=== PATIENT | male | born 1960 ===

== ENCOUNTER 2025-02-24 12:54 | Inpatient (IN) | payer MEDICARE ==
[~2025-02-24] VITALS: Ht 172.7 cm; Wt 57.9 kg
[2025-02-24 11:45] VITALS: BP 89/47
[~2025-02-24 12:54] MED LIST: AFRIN 15 ML15 M1 NAS; ASPIRIN ADULT L81 M2 PO; BROVANA15 MCG/2 M INH; HUMALOG100 UNIT/1 SQ; LANTUS100 UNIT/1 SC; LIPITOR40 MG PO; LISINOPRIL2.5 MG PO; MEMANTINE HCL10 MG PO; MULTI-VITAMIN1 EACH PO; PEPCID20 MG PO; PLAVIX75 M1 PO; RIVASTIGMINE1 EAC2 T; SINGULAIR10 M1 PO; TOPROL XL25 MG PO
[2025-02-24] MEDS ORDERED: ACETAMINOPHEN 325 MG TAB PO PRN (13:10)
[2025-02-24] MEDS ORDERED: ACETAMINOPHEN 650 MG SUPP R PRN (13:10)
[2025-02-24] MEDS ORDERED: Acetaminophen/Hydrocodone 5 MG/325 MG TABLET PO PRN (13:10)
[2025-02-24] MEDS ORDERED: Ondansetron Hydrochloride 4 MG/2 ML VIAL IV PRN (13:10)
[2025-02-24] MEDS ORDERED: SODIUM CHLORIDE 0.9% 1,000 ML IV ONE (13:15)
[2025-02-24 14:06] LABS: BASO % 0.3 % (0.0-1.0); EOS # 0.1 10*3/uL (0.0-0.4); EOS % 1.1 % (1.0-4.0); HEMATOCRIT 40.4 % (42.0-52.0); MEAN CELL VOLUME 91.8 fl (80.0-94.0); MEAN CORPUSCULAR HGB 30.7 pg (27.0-31.0); MEAN CORPUSCULAR HGB CONC 33.4 g/dl (33.0-37.0); MEAN PLATELET VOLUME 9.5 fl (9.6-12.3); MONO # 1.3 10*3/uL (0.1-1.0); MONO % 10.4 % (3.0-9.0); NEUT # 9.2 10*3/uL (2.3-7.9); NEUT % 75.2 % (47.0-73.0); PLATELET COUNT AUTOMATED 155 10*3/uL (130-400); RED CELL DISTRI WIDTH 13.6 % (0-14.5); WHITE BLOOD COUNT 12.3 10*3/uL (4.8-10.8)
[2025-02-24] MEDS ORDERED: Albuterol Sulfate 2.5 MG/3 ML VIAL NEB SCH (14:45)
[2025-02-24 16:00] VITALS: BP 98/56
[2025-02-24] MEDS ORDERED: Ziprasidone Hydrochloride 40 MG CAP PO SCH (17:00)
[2025-02-24] MEDS ORDERED: DEXTROSE 50% 25 GM/50 ML VIAL IV PRN (18:35)
[2025-02-24 20:00] VITALS: BP 119/41
[2025-02-24] MEDS ORDERED: Insulin Glargine, Recombinan 1 UNIT/0.01 ML SC SCH (21:00)
[2025-02-24] MEDS ORDERED: Montelukast Sodium 10 MG TAB PO SCH (21:00)
[2025-02-24] MEDS ORDERED: ATORVASTATIN CALCIUM 40 MG TABLET PO SCH (21:00)
[2025-02-24] MEDS ORDERED: Memantine Hydrochloride 10 MG TAB PO SCH (21:00)
[2025-02-24] MEDS ORDERED: FORMOTEROL FUMARATE 20 MCG/2 ML SCH (21:00)
[2025-02-24] MEDS ORDERED: INSULIN LISPRO 1 UNIT/0.01 ML SQ SCH (22:00)
[2025-02-24] MEDS ORDERED: DIVALPROEX SODIUM 125 MG CAP PO SCH (22:00)
[2025-02-24] MEDS ORDERED: LITHIUM CARBONATE 150 MG CAPSULE PO SCH (22:00)
[2025-02-24] MEDS ORDERED: Haloperidol Lactate 5 MG/ML AMP IM ONE (23:30)
[2025-02-25] MEDS ORDERED: Haloperidol Lactate 5 MG/ML AMP ONE (00:01)
[2025-02-25 04:00] VITALS: BP 98/44
[2025-02-25 04:24] LABS: BASO % 0.4 % (0.0-1.0); EOS # 0.1 10*3/uL (0.0-0.4); EOS % 1.4 % (1.0-4.0); HEMATOCRIT 39.7 % (42.0-52.0); MEAN CELL VOLUME 91.3 fl (80.0-94.0); MEAN CORPUSCULAR HGB 30.3 pg (27.0-31.0); MEAN CORPUSCULAR HGB CONC 33.2 g/dl (33.0-37.0); MEAN PLATELET VOLUME 8.8 fl (9.6-12.3); MONO % 10.3 % (3.0-9.0); NEUT % 72.7 % (47.0-73.0); PLATELET COUNT AUTOMATED 144 10*3/uL (130-400); RED BLOOD COUNT 4.35 10*6/uL (4.50-5.90); RED CELL DISTRI WIDTH 13.3 % (0-14.5); WHITE BLOOD COUNT 9.6 10*3/uL (4.8-10.8)
[2025-02-25 04:58] LABS: ALKALINE PHOSPHATASE 78 U/L (46-116); BUN 37 mg/dl (9-23); CHLORIDE 107 mmol/L (98-107); POTASSIUM 3.8 mmol/L (3.4-5.1); SGPT/ALT 18 U/L (5-49); TOTAL PROTEIN 6.8 gm/dL (6.0-8.0)
[2025-02-25 08:00] VITALS: BP 95/50
[2025-02-25 08:29] LABS: BILIRUBIN Negative (Negative); BLOOD Negative (Negative); CLARITY Cloudy (Clear); COLOR Yellow (Yellow); GLUCOSE Negative (Negative); KETONE 1+ (Negative); LEUKO ESTERASE Negative (Negative); NITRITE Negative (Negative); PH 6.5 (4.5-8.0); SPECIFIC GRAVITY 1.025 (1.001-1.030)
[2025-02-25] MEDS ORDERED: ASPIRIN ENTERIC COATED 81 MG TAB PO SCH (09:00)
[2025-02-25] MEDS ORDERED: Clopidogrel Hydrogen Sulfate 75 MG TAB PO SCH (09:00)
[2025-02-25] MEDS ORDERED: RIVASTIGMINE 13.3 MG/24 HR TDM T SCH (09:00)
[2025-02-25 09:22] LABS: BACTERIA TRACE; HYALINE CAST 0-2; MUCOUS 1+; RBC 0-2 rbc/hpf (0-2); WBC 0-2 wbc/hpf (0-5)
[2025-02-25] MEDS ORDERED: FAMOTIDINE 20 MG TAB PO SCH (10:00)
[2025-02-25] MEDS ORDERED: Enoxaparin Sodium 40 MG/0.4 ML SYR SC SCH (10:00)
[2025-02-25] MEDS ORDERED: SODIUM CHLORIDE 0.9% 1,000 ML IV ONE (10:55)
[2025-02-25 12:00] VITALS: BP 98/54
[2025-02-25 16:00] VITALS: BP 99/52
[2025-02-25] MEDS ORDERED: hydrOXYzine pamoate 25 MG CAP PO ONE (17:50)
[2025-02-25] MEDS ORDERED: diphenhydrAMINE hydrochloride 50 MG/ML VIAL IV ONE (18:00)
[2025-02-25] MEDS ORDERED: diphenhydrAMINE hydrochloride 50 MG/ML VIAL ONE (18:22)
[2025-02-25 20:00] VITALS: BP 111/56
[2025-02-26] VITALS: BP 116/72
[2025-02-26 05:35] LABS: BUN 20 mg/dl (9-23); CHLORIDE 106 mmol/L (98-107); POTASSIUM 3.8 mmol/L (3.4-5.1)
[2025-02-26 06:09] LABS: BASO # 0.1 10*3/uL (0.0-0.1); BASO % 0.6 % (0.0-1.0); EOS # 0.2 10*3/uL (0.0-0.4); EOS % 1.9 % (1.0-4.0); MEAN CELL VOLUME 90.7 fl (80.0-94.0); MEAN CORPUSCULAR HGB 30.5 pg (27.0-31.0); MEAN CORPUSCULAR HGB CONC 33.7 g/dl (33.0-37.0); MONO # 0.9 10*3/uL (0.1-1.0); MONO % 10.8 % (3.0-9.0); NEUT # 5.7 10*3/uL (2.3-7.9); NEUT % 66.5 % (47.0-73.0); PLATELET COUNT AUTOMATED 147 10*3/uL (130-400); RED BLOOD COUNT 4.19 10*6/uL (4.50-5.90); RED CELL DISTRI WIDTH 13.5 % (0-14.5); WHITE BLOOD COUNT 8.6 10*3/uL (4.8-10.8)
[2025-02-26] MEDS ORDERED: Albuterol Sulfate 2.5 MG/3 ML VIAL NEB PRN (07:40)
[2025-02-26 08:00] VITALS: BP 113/62
[2025-02-26] MEDS ORDERED: LITHIUM CARBON150 MG PO (12:28)
[2025-02-26] MEDS ORDERED: DIVALPROEX SOD125 M1 PO (12:28)
[2025-02-26] MEDS ORDERED: ZIPRASIDONE HCL40 MG PO (12:28)
[2025-02-26 16:00] VITALS: BP 101/45
== END 2025-02-26 21:00 | DRG 640 ==
LOC: ICCU 12:54
PROVIDERS: ADMIT Internal Medicine; ATTEND Internal Medicine
DX: E86.0 Dehydration (principal); G93.41 Metabolic encephalopathy; N17.0 Acute kidney failure with tubular necrosis; F02.818 Dementia in other diseases classified elsewhere, unspecified severity, with other behavioral disturbance; E44.0 Moderate protein-calorie malnutrition; Z68.1 Body mass index [BMI] 19.9 or less, adult; G30.9 Alzheimer's disease, unspecified; I25.10 Atherosclerotic heart disease of native coronary artery without angina pectoris; J44.9 Chronic obstructive pulmonary disease, unspecified; E78.5 Hyperlipidemia, unspecified; I10 Essential (primary) hypertension; E86.1 Hypovolemia; R00.1 Bradycardia, unspecified; E11.65 Type 2 diabetes mellitus with hyperglycemia; D64.9 Anemia, unspecified; E55.9 Vitamin D deficiency, unspecified; F63.81 Intermittent explosive disorder; E87.8 Other disorders of electrolyte and fluid balance, not elsewhere classified; Z86.73 Personal history of transient ischemic attack (TIA), and cerebral infarction without residual deficits